=== PATIENT | female | born 1970 | race Caucasian/White ===

== ENCOUNTER 2022-08-06 15:07 | Emergency (ER) | payer BC, OTHER ==
[~2022-08-06] VITALS: Ht 160 cm; Wt 86.2 kg
--- NOTE | 2022-08-06 15:56 | NUR ---
MSE done, pt walked out of ER after speaking with the physician.
== END 2022-08-06 16:04 | disposition home or self-care (01) ==
LOC: ER 15:07
DX: M25.561 Pain in right knee (principal)
CPT/HCPCS: A4663